=== PATIENT | female | born 1960 | race Two or more races ===

== ENCOUNTER 2024-02-01 22:15 | Emergency (ER) | payer MEDICAID ==
[~2024-02-01] VITALS: Ht 162.6 cm; Wt 112.0 kg
[2024-02-01 22:33] VITALS: BP 132/95; PULSE 60; RESP 16; TEMP 98.3; O2SAT 98
[2024-02-01] MEDS ORDERED: CYCL5TAB MT (23:37)
[2024-02-01] MEDS ORDERED: LIDO700A15 TP (23:37)
[2024-02-01] MEDS ORDERED: TOPUD MT (23:37)
== END 2024-02-02 00:01 | disposition home or self-care (01) ==
LOC: ER 22:15
DX: S16.1XXA Strain of muscle, fascia and tendon at neck level, initial encounter (principal); S29.012A Strain of muscle and tendon of back wall of thorax, initial encounter; S39.012A Strain of muscle, fascia and tendon of lower back, initial encounter; J45.909 Unspecified asthma, uncomplicated; I50.9 Heart failure, unspecified; E11.9 Type 2 diabetes mellitus without complications; Z79.899 Other long term (current) drug therapy; Z98.890 Other specified postprocedural states; V43.02XA Car driver injured in collision with other type car in nontraffic accident, initial encounter; Y93.89 Activity, other specified; Y92.89 Other specified places as the place of occurrence of the external cause; Y99.8 Other external cause status
CPT/HCPCS: 99283

== ENCOUNTER 2024-05-23 17:31 | Emergency (ER) | payer MEDICAID ==
[~2024-05-23] VITALS: Ht 170.2 cm; Wt 120.0 kg
[~2024-05-23 17:31] MED LIST: CYCL5TAB MT; LIDO700A15 TP; TOPUD MT
[2024-05-23 17:34] VITALS: O2SAT 97
[2024-05-23 18:02] VITALS: BP 143/81; PULSE 86; RESP 18; TEMP 98.4; O2SAT 99
[2024-05-23] MEDS: TETANUS, DIPHTHERIA, PERTUSSIS VAC/PF 0.5ML (>10YR OLD) IM ONE (19:48)
== END 2024-05-23 19:55 | disposition home or self-care (01) ==
LOC: ER 17:31
DX: S80.811A Abrasion, right lower leg, initial encounter (principal); M79.604 Pain in right leg; M54.9 Dorsalgia, unspecified; J45.909 Unspecified asthma, uncomplicated; I50.9 Heart failure, unspecified; E11.9 Type 2 diabetes mellitus without complications; V49.59XA Passenger injured in collision with other motor vehicles in traffic accident, initial encounter; Y92.410 Unspecified street and highway as the place of occurrence of the external cause; Y92.89 Other specified places as the place of occurrence of the external cause; Y99.8 Other external cause status
CPT/HCPCS: 72131; 72192; 73590; 73630; 90715; 99284